=== PATIENT | male | born 1975 | race Caucasian/White ===

== ENCOUNTER 2018-06-25 20:37 | Emergency (ER) | payer SELFPAY ==
[~2018-06-25] VITALS: Ht 177.8 cm; Wt 85.1 kg
[2018-06-25 21:17] VITALS: Ht 177.8 cm; Wt 85.1 kg
[2018-06-25] MEDS ORDERED: morphine 4 MG/ML VIAL IV STA (23:38)
[2018-06-25] MEDS ORDERED: SOD CHLORIDE 0.9% 1,000 ML IV STA (23:38)
[2018-06-25] MEDS ORDERED: ONDANSETRON 4 MG INJ IV STA (23:38)
[2018-06-26] MEDS ORDERED: TRAM50TA2 PO (02:35)
--- NOTE | 2018-06-26 02:44 | ERD ---
ER Documentation Chief Complaint Chief Complaint abd pain/vomiting x 1 day HPI 32-year-old male comes in with abdominal pain and vomiting for 1 day. Pain is mild to moderate in intensity. Denies any fevers or chills. Denies any nausea vomiting. ROS All systems reviewed and are negative except as per history of present illness. Medications Home Meds Active Scripts Tramadol HCl (Tramadol HCl) 50 Mg Tablet, 50 MG PO Q4 PRN for PAIN, #20 TAB Prov:RAYSA TABOR 06/26/18 PMhx/Soc Medical and Surgical Hx: pt denies Surgical Hx History of Surgery: No Anesthesia Reaction: No Hx Neurological Disorder: No Hx Respiratory Disorders: No Hx Cardiac Disorders: No Hx Psychiatric Problems: No Hx Miscellaneous Medical Probl: No Hx Alcohol Use: Yes Hx Substance Use: No Hx Tobacco Use: Yes Smoking Status: Current every day smoker Physical Exam Vitals Vital Signs Date Temp Pulse Resp B/P (MAP) Pulse Ox O2 O2 Flow FiO2 Time Delivery Rate 06/26/18 99.6 81 18 126/64 98 Room Air 01:16 (84) 06/26/18 99.6 85 18 135/87 98 Room Air 00:15 (103) 06/25/18 99.6 89 17 135/82 94 Room Air 23:38 (99) 06/25/18 99.6 78 18 134/ 80 21:17 Physical Exam Const: No acute distress Head: Atraumatic Eyes: Normal Conjunctiva ENT: Normal External Ears, Nose and Mouth. Neck: Full range of motion. No meningismus. Resp: Clear to auscultation bilaterally Cardio: Regular rate and rhythm, no murmurs Abd: Soft, non tender, non distended. Normal bowel sounds Skin: No petechiae or rashes Back: No midline or flank tenderness Ext: No cyanosis, or edema Neur: Awake and alert Psych: Normal Mood and Affect Result Diagram: 06/25/18 2350 06/25/18 235 Results 24 hrs Laboratory Tests Test 06/25/18 00:25 06/25/18 23:50 Urine Color BRANDAN Urine Clarity SLIGHTLY CLOUDY Urine pH 5.0 Urine Specific Cable 1.031 Urine Ketones 2+ mg/dL Urine Nitrite NEGATIVE mg/dL Urine Bilirubin NEGATIVE mg/dL Urine Urobilinogen 1+ mg/dL Urine Leukocyte Esterase TRACE Jade/ul Urine Microscopic RBC 2 /HPF Urine Microscopic WBC 7 /HPF Urine Bacteria FEW /HPF Urine Mucus MANY /HPF Urine Hemoglobin NEGATIVE mg/dL Urine Glucose NEGATIVE mg/dL Urine Total Protein 1+ mg/dl White Blood Count 9.3 10^3/ul Red Blood Count 5.64 10^6/ul Hemoglobin 17.1 g/dl Hematocrit 50.3 % Mean Corpuscular Volume 89.2 fl Mean Corpuscular Hemoglobin 30.3 pg Mean Corpuscular Hemoglobin Concent 34.0 g/dl Red Cell Distribution Width 12.8 % Platelet Count 161 10^3/UL Mean Platelet Volume 11.9 fl Immature Granulocytes % 0.300 % Neutrophils % 72.6 % Lymphocytes % 19.8 % Monocytes % 6.5 % Eosinophils % 0.2 % Basophils % 0.6 % Nucleated Red Blood Cells % 0.0 /100WBC Immature Granulocytes # 0.030 10^3/ul Neutrophils # 6.7 10^3/ul Lymphocytes # 1.8 10^3/ul Monocytes # 0.6 10^3/ul Eosinophils # 0.0 10^3/ul Basophils # 0.1 10^3/ul Nucleated Red Blood Cells # 0.0 10^3/ul Sodium Level 144 mmol/L Potassium Level 3.7 mmol/L Chloride Level 103 mmol/L Carbon Dioxide Level 29 mmol/L Anion Gap 12 Blood Urea Nitrogen 15 mg/dl Creatinine 0.85 mg/dl Est Glomerular Filtrat Rate mL/min > 60 mL/min Glucose Level 106 mg/dl Calcium Level 10.1 mg/dl Total Bilirubin 1.2 mg/dl Direct Bilirubin 0.00 mg/dl Indirect Bilirubin 1.2 mg/dl Aspartate Amino Transf (AST/SGOT) 24 IU/L Alanine Aminotransferase (ALT/SGPT) 24 IU/L Alkaline Phosphatase 66 IU/L Total Protein 7.8 g/dl Albumin 4.6 g/dl Globulin 3.20 g/dl Albumin/Globulin Ratio 1.43 Lipase 57 U/L Current Medications Medications Dose Sig/Tomer Start Time Status Last (Trade) Ordered Route PRN Stop Time Admin Dose Reason Admin Sodium 1,000 ml @ Q1H STAT 06/25/18 DC 06/26/18 Chloride 1,000 mls/hr IV 23:38 00:20 06/26/18 00:37 Morphine 4 mg ONCE STAT 06/25/18 DC 5/14/19 Sulfate IV 23:38 00:19 (morphine) 06/25/18 23:39 Ondansetron 4 mg ONCE STAT 06/25/18 DC 06/26/18 HCl (Zofran IV 23:38 00:19 Inj) 06/25/18 23:39 Procedures/MDM Medical decision making: This is a 42-year-old male with abdominal pain. At this point is clinically stable for trial of outpatient management. No evidence of surgical abdomen. Patient stable for trial of outpatient management. Patient's gastrointestinal symptoms have stabilized while in the department. No evidence of severe dehydration, sepsis, or surgical abdomen. Extensive discussion with family and patient that occult disease cannot be ruled out. 8 hour recheck for repeat abdominal exam is planned. Departure Diagnosis: Primary Impression: Abdominal pain Abdominal location: unspecified location Qualified Codes: R10.9 - Unspecified abdominal pain Condition: Stable Patient Instructions: Abdominal Pain RAYSA TABOR June 26, 2018 02:44
[2018-06-26 02:48] VITALS: BP 124/72; PULSE 81; RESP 12
== END 2018-06-26 02:48 | disposition home or self-care (01) ==
LOC: E/R 20:37
DX: R10.9 Unspecified abdominal pain (principal); F17.210 Nicotine dependence, cigarettes, uncomplicated; R11.10 Vomiting, unspecified
CPT/HCPCS: 36415; 71045; 74176; 80053; 81001; 83690; 85025; 96374; 96375; 99285; J2270; J2405; J7030